=== PATIENT | female | born 1950 | race Caucasian/White ===

== ENCOUNTER 2024-03-15 11:05 | Outpatient (CLI) | payer OTHER ==
[2024-03-15] MEDS ORDERED: Iopamidol 370 76% 100 ML VIAL ONE (14:48)
== END 2024-03-15 11:06 | disposition home or self-care (01) ==
LOC: BICCT 11:05
PROVIDERS: ATTEND Student in an Organized Health Care Education/Training Program
DX: I73.9 Peripheral vascular disease, unspecified (principal); R91.8 Other nonspecific abnormal finding of lung field; I77.1 Stricture of artery; I72.8 Aneurysm of other specified arteries
CPT/HCPCS: 36415; 75635; 82565; Q9967

== ENCOUNTER 2024-12-04 12:27 | Outpatient (CLI) | payer OTHER ==
[2024-12-04] MEDS ORDERED: Iopamidol 370 76% 100 ML VIAL ONE (12:58)
[2024-12-04 13:17] LABS: Estimated GFR - POC 68.0
== END 2024-12-04 12:28 | disposition home or self-care (01) ==
LOC: CT 12:27
PROVIDERS: ATTEND Internal Medicine
DX: Z01.89 Encounter for other specified special examinations (principal); R91.8 Other nonspecific abnormal finding of lung field
CPT/HCPCS: 36415; 71260; 82565; Q9967

== ENCOUNTER 2025-01-16 11:24 | Outpatient (CLI) | payer OTHER | END 2025-01-16 11:25 | disposition home or self-care (01) | LOC: SCSBT 11:24 | PROVIDERS: ATTEND Internal Medicine | DX: M81.0 Age-related osteoporosis without current pathological fracture (principal); M85.851 Other specified disorders of bone density and structure, right thigh; M85.852 Other specified disorders of bone density and structure, left thigh | CPT/HCPCS: 77080 ==